=== PATIENT | female | born 1950 | race Caucasian/White ===

== ENCOUNTER 2016-08-22 16:25 | Emergency (ER) | payer OTHER ==
[2016-08-22] MEDS ORDERED: TETRACAINE 0.5% - 2 ML EYE DROPS EACH EYE ONE (16:46)
[2016-08-22] MEDS ORDERED: FLUORESCEIN 1 MG EYE STRIP LEFT EYE ONE (16:46)
[2016-08-22] MEDS ORDERED: FLUORESCEIN 1 MG EYE STRIP ONE (16:48)
[2016-08-22] MEDS ORDERED: TETRACAINE 0.5% - 2 ML EYE DROPS ONE (16:48)
[2016-08-22] MEDS ORDERED: TOBRAMYCIN 0.3% - 5 ML EYE DROPS LEFT EYE ONE (16:55)
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
[2016-08-22 17:04] VITALS: RESP 18; TEMP 97.2
== END 2016-08-22 17:16 | disposition home or self-care (01) ==
LOC: ER 16:25
DX: H10.32 Unspecified acute conjunctivitis, left eye (principal); H57.12 Ocular pain, left eye
CPT/HCPCS: 99282